=== PATIENT | male | born 1980 | race Caucasian/White ===

== ENCOUNTER 2020-09-18 00:38 | Emergency (ER) | payer SELFPAY ==
[~2020-09-18] VITALS: Ht 170.2 cm; Wt 77.3 kg
[~2020-09-18 00:38] MED LIST: CEPHALEXIN500 M1 PO; SINGULAIR 110 MG/TAB PO
[2020-09-18 00:44] VITALS: TEMP 97.7
[2020-09-18] MEDS ORDERED: BUSPAR10 MG PO (00:48)
[2020-09-18 01:33] VITALS: BP 124/87; PULSE 81
== END 2020-09-18 01:35 | disposition home or self-care (01) ==
LOC: COL.ER 00:38
DX: S61.411A Laceration without foreign body of right hand, initial encounter (principal); S61.511A Laceration without foreign body of right wrist, initial encounter; F41.8 Other specified anxiety disorders; F17.210 Nicotine dependence, cigarettes, uncomplicated; Z79.899 Other long term (current) drug therapy; W26.8XXA Contact with other sharp object(s), not elsewhere classified, initial encounter

== ENCOUNTER 2021-10-27 22:12 | Emergency (ER) | payer SELFPAY ==
[~2021-10-27] VITALS: Ht 170.2 cm; Wt 77.3 kg
[~2021-10-27 22:12] MED LIST changes: +BUSPAR10 MG PO
[2021-10-27 22:17] VITALS: TEMP 98
[2021-10-28 00:10] VITALS: BP 107/67; PULSE 67
== END 2021-10-28 00:10 | disposition home or self-care (01) ==
LOC: COL.ER 22:12
DX: S02.85XA Fracture of orbit, unspecified, initial encounter for closed fracture (principal); S02.40DA Maxillary fracture, left side, initial encounter for closed fracture; S02.40FA Zygomatic fracture, left side, initial encounter for closed fracture; F17.210 Nicotine dependence, cigarettes, uncomplicated; Z28.311 Partially vaccinated for COVID-19; Y04.2XXA Assault by strike against or bumped into by another person, initial encounter

== ENCOUNTER 2023-02-08 15:46 | Emergency (ER) | payer OTHER ==
[~2023-02-08] VITALS: Ht 170.2 cm; Wt 77.3 kg
[~2023-02-08 15:46] MED LIST changes: +BACTRIM DS 8001 TAB PO; +FLEXERIL 1010 MG/TAB PO
[2023-02-08 16:08] VITALS: BP 103/70; PULSE 103; TEMP 98.3
== END 2023-02-08 18:27 | disposition left against medical advice (07) ==
LOC: COL.ER 15:46
DX: S69.92XA Unspecified injury of left wrist, hand and finger(s), initial encounter (principal); W23.0XXA Caught, crushed, jammed, or pinched between moving objects, initial encounter